=== PATIENT | female | born 1955 | race Caucasian/White ===

== ENCOUNTER 2023-01-08 13:56 | Outpatient (CLI) | payer MEDICARE | END 2023-01-08 13:57 | disposition home or self-care (01) | LOC: MADRAD 13:56 | PROVIDERS: ATTEND Neurological Surgery | DX: M48.56XA Collapsed vertebra, not elsewhere classified, lumbar region, initial encounter for fracture (principal) | CPT/HCPCS: 72100 ==

== ENCOUNTER 2023-02-22 11:32 | Outpatient (CLI) | payer MEDICARE | END 2023-02-22 11:33 | disposition home or self-care (01) | LOC: MADRAD 11:32 | PROVIDERS: ATTEND Psychiatry & Neurology Clinical Neurophysiology | DX: M48.56XA Collapsed vertebra, not elsewhere classified, lumbar region, initial encounter for fracture (principal) | CPT/HCPCS: 72100 ==

== ENCOUNTER 2023-04-17 15:37 | Outpatient (CLI) | payer MEDICARE | END 2023-04-17 15:38 | disposition home or self-care (01) | LOC: MADRAD 15:37 | PROVIDERS: ATTEND Neurological Surgery | DX: M54.50 Low back pain, unspecified (principal); S32.020D Wedge compression fracture of second lumbar vertebra, subsequent encounter for fracture with routine healing; S32.030D Wedge compression fracture of third lumbar vertebra, subsequent encounter for fracture with routine healing | CPT/HCPCS: 72100 ==